=== PATIENT | female | born 1935 | race Caucasian/White ===

== ENCOUNTER 2021-05-09 19:24 | Inpatient (IN) ==
[2021-05-09] MEDS ORDERED: Naloxone 0.4 MG/ML INJ IVP PRN (23:35)
[2021-05-09] MEDS ORDERED: Ondansetron 4 MG/2 ML VIAL IVP PRN (23:35)
[2021-05-09] MEDS ORDERED: *HR* Heparin 5,000 UNIT/ML VIAL IVP PRN ×2 (23:39)
[2021-05-09] MEDS ORDERED: *HR* Heparin 5,000 UNIT/ML VIAL IVP ONE (23:39)
[2021-05-10 01:30] LABS: Basophils % 0.4 %; Eosinophils % 0.4 %; Hemoglobin 10.3 g/dL (11.5-15.4); Immature Granulocytes % 0.5 % (0-4); Lymphocytes # 0.7 K/mcL (0.6-4.6); Lymphocytes % 7.1 %; Mean Corpuscular HGB Conc 32.2 g/dL (31.6-35.5); Mean Corpuscular Hemoglobin 29.9 pg (28.0-33.3); Mean Corpuscular Volume 92.8 fL (83.0-100.0); Mean Platelet Volume 10.6 fL (9.4-12.4); Monocytes # 0.9 K/mcL (0.0-1.3); Monocytes % 9.2 %; Neutrophils # 8.1 K/mcL (1.6-8.9); Platelet Count 137 K/mcL (140-400); Red Blood Count 3.45 M/mcL (3.82-4.97); Red Cell Distribution Width 13.4 % (11.5-14.5); Segmented Neutrophils % 82.4 %; White Blood Count 9.8 K/mcL (4.3-11.1)
[2021-05-10 01:37] LABS: INR 1.6; Prothrombin Time 18.6 Seconds (9.4-12.1)
[2021-05-10 01:50] LABS: Albumin 3.9 g/dL (3.5-5.7); Albumin/Globulin Ratio 1.3 (1.1-2.2); Bilirubin,Total 1.4 mg/dL (0.3-1.0); Calcium 9.5 mg/dL (8.6-10.3); Globulin 3.1 g/dL (2.4-3.5); Magnesium 1.9 mg/dL (1.6-2.6); Phosphorous 2.7 mg/dL (2.7-4.5); Potassium 3.5 mEq/L (3.5-5.1)
[2021-05-10] MEDS: Heparin 25,000UNIT/250ML 1/2NS 25,000 UNIT/250 ML IV.SOLN IVC SCH (02:02)
[2021-05-10] MEDS ORDERED: Perflutren Lipid Microsphere 1.3 ML in 0.9 % Sodium Chloride 8.7 ML IVP PRN (07:24)
[2021-05-10] MEDS ORDERED: Furosemide 40 MG/4 ML VIAL IVP SCH (09:00)
[2021-05-10] MEDS ORDERED: ALPRAZolam 0.25 MG TABLET PO PRN (13:06)
[2021-05-10] MEDS: calcitrioL 0.25 MCG CAPSULE PO SCH (13:44)
[2021-05-10] MEDS: Aspirin Enteric Coated 81 MG Tablet PO SCH (13:44)
[2021-05-10] MEDS ORDERED: Warfarin perPT PO PRN (18:00)
[2021-05-10] MEDS ORDERED: *HR* Warfarin 2.5 MG TABLET PO ONE (18:00)
[2021-05-11 01:12] LABS: Hematocrit 32.6 % (35.3-44.9); Hemoglobin 10.6 g/dL (11.5-15.4); Mean Corpuscular HGB Conc 32.5 g/dL (31.6-35.5); Mean Corpuscular Hemoglobin 29.8 pg (28.0-33.3); Mean Corpuscular Volume 91.6 fL (83.0-100.0); Mean Platelet Volume 10.1 fL (9.4-12.4); Platelet Count 135 K/mcL (140-400); Red Blood Count 3.56 M/mcL (3.82-4.97); Red Cell Distribution Width 13.2 % (11.5-14.5); White Blood Count 7.8 K/mcL (4.3-11.1)
[2021-05-11 01:26] LABS: Heparin anti-factor XA UFH 0.67 IU/mL (0.30-0.70); INR 1.6; Prothrombin Time 18.4 Seconds (9.4-12.1)
[2021-05-11 01:31] LABS: Calcium 8.9 mg/dL (8.6-10.3); Potassium 3.7 mEq/L (3.5-5.1)
[2021-05-11] MEDS: lisinopriL 5 MG TABLET PO SCH (08:32)
[2021-05-11] MEDS: Furosemide 40 MG TABLET PO SCH (08:32)
[2021-05-11] MEDS: Metoprolol XL (24 HR) Succ 50 MG TAB.ER.24H PO SCH (08:33)
[2021-05-11] MEDS: Aspirin Enteric Coated 81 MG Tablet PO SCH (08:33)
[2021-05-11] MEDS: Heparin 25,000UNIT/250ML 1/2NS 25,000 UNIT/250 ML IV.SOLN IVC SCH (15:24)
[2021-05-11] MEDS ORDERED: *HR* Warfarin 4 MG TABLET PO ONE (18:00)
[2021-05-12 03:11] LABS: Hematocrit 31.4 % (35.3-44.9); Hemoglobin 9.9 g/dL (11.5-15.4); Mean Corpuscular HGB Conc 31.5 g/dL (31.6-35.5); Mean Corpuscular Hemoglobin 29.6 pg (28.0-33.3); Mean Corpuscular Volume 93.7 fL (83.0-100.0); Mean Platelet Volume 10.5 fL (9.4-12.4); Platelet Count 146 K/mcL (140-400); Red Blood Count 3.35 M/mcL (3.82-4.97); Red Cell Distribution Width 13.5 % (11.5-14.5); White Blood Count 7.5 K/mcL (4.3-11.1)
[2021-05-12 03:15] LABS: Prothrombin Time 22.9 Seconds (9.4-12.1)
[2021-05-12 03:32] LABS: Calcium 8.9 mg/dL (8.6-10.3); Potassium 3.5 mEq/L (3.5-5.1)
[2021-05-12] MEDS: Heparin 25,000UNIT/250ML 1/2NS 25,000 UNIT/250 ML IV.SOLN IVC SCH (07:35)
[2021-05-12] MEDS: Aspirin Enteric Coated 81 MG Tablet PO SCH (07:48)
[2021-05-12] MEDS: Metoprolol XL (24 HR) Succ 50 MG TAB.ER.24H PO SCH (07:49)
[2021-05-12] MEDS: calcitrioL 0.25 MCG CAPSULE PO SCH (11:38)
[2021-05-12] MEDS ORDERED: *HR* Warfarin 2.5 MG TABLET PO ONE (18:00)
[2021-05-12] MEDS ORDERED: Warfarin 1 MG, Warfarin 0.5 MG PO SCH (18:00)
[2021-05-12] MEDS ORDERED: *HR* Warfarin 1 MG TABLET PO ONE (18:00)
[2021-05-13 04:58] LABS: Hematocrit 29.5 % (35.3-44.9); Hemoglobin 9.4 g/dL (11.5-15.4); Mean Corpuscular HGB Conc 31.9 g/dL (31.6-35.5); Mean Corpuscular Hemoglobin 29.4 pg (28.0-33.3); Mean Corpuscular Volume 92.2 fL (83.0-100.0); Mean Platelet Volume 10.2 fL (9.4-12.4); Platelet Count 142 K/mcL (140-400); Red Cell Distribution Width 13.3 % (11.5-14.5); White Blood Count 6.4 K/mcL (4.3-11.1)
[2021-05-13 04:59] LABS: INR 3.4; Prothrombin Time 38.5 Seconds (9.4-12.1)
[2021-05-13 05:08] LABS: Calcium 8.9 mg/dL (8.6-10.3); Potassium 3.7 mEq/L (3.5-5.1)
[2021-05-13 07:50] VITALS: BP 154/76
[2021-05-13] MEDS: Aspirin Enteric Coated 81 MG Tablet PO SCH (07:54)
[2021-05-13] MEDS: Furosemide 40 MG TABLET PO SCH (07:54)
[2021-05-13] MEDS: Metoprolol XL (24 HR) Succ 50 MG TAB.ER.24H PO SCH (07:54)
[2021-05-13] MEDS: lisinopriL 5 MG TABLET PO SCH (07:54)
== END 2021-05-13 13:16 | disposition home or self-care (01) | DRG 292 ==
LOC: 2ANU → SUATTDRO 05-11 15:18
PROVIDERS: ADMIT Family Medicine; ATTEND Internal Medicine